=== PATIENT | male | born 1945 | race Caucasian/White ===

== ENCOUNTER → 2019-02-24 08:41 | Outpatient (CLI) | payer MEDICARE, OTHER, SELFPAY ==
[2019-02-24 09:55] LABS: Hemoglobin A1C% w Est Avg Glu 11.4 % (4.0-6.0)
[2019-02-24 10:02] LABS: Alanine Aminotransferase 28 IU/L (21-72); Albumin 3.9 g/dL (3.5-5.0); Albumin Globulin Ratio 1.5 (1.0-2.8); Alkaline Phosphatase 93 U/L (38-126); Aspartate Aminotransferase 23 IU/L (17-59); BUN Creatinine Ratio 18.8 (6-22); Bilirubin Total 0.6 mg/dL (0.2-1.3); Blood Urea Nitrogen 15 mg/dL (9-20); Calcium 9.2 mg/dL (8.4-10.2); Carbon Dioxide 31 mmol/L (22-32); Chloride 98 mmol/L (98-107); Cholesterol 179 mg/dL (140-199); Estimated Glomerular Filt Rate > 60.0 mL/min (>60); Globulin 2.6 g/dL (1.7-4.1); Glucose 248 mg/dL (80-110); HDL Cholesterol 40 mg/dL (40-60); HEMOLYSIS < 15 (0-50); LDL Cholesterol Calculated 109 mg/dL (<100); Potassium 4.5 mmol/L (3.4-5.1); Sodium 135 mmol/L (137-145); Total Protein 6.5 g/dL (6.3-8.2); Triglycerides 152 mg/dL (35-150)
== END ==
PROVIDERS: Visit Provider Internal Medicine
DX: I10 Essential (primary) hypertension (principal); E11.9 Type 2 diabetes mellitus without complications; E78.5 Hyperlipidemia, unspecified
CPT/HCPCS: 36415; 80053; 80061; 83036

== ENCOUNTER → 2019-09-11 07:20 | Outpatient (CLI) | payer MEDICARE, OTHER, SELFPAY ==
[2019-09-11 10:58] LABS: Hemoglobin A1C% w Est Avg Glu 10.2 % (4.0-6.0)
== END ==
PROVIDERS: PCP Internal Medicine; Referring Provider Internal Medicine; Visit Provider Internal Medicine
DX: E11.9 Type 2 diabetes mellitus without complications (principal)
CPT/HCPCS: 36415; 83036

== ENCOUNTER → 2020-01-28 10:03 | Outpatient (CLI) | payer MEDICARE, OTHER, SELFPAY ==
[2020-01-28 10:47] LABS: Hemoglobin A1C% w Est Avg Glu 10.6 % (4.0-6.0)
[2020-01-28 10:48] LABS: Add Manual Diff / Slide Review NO; Basophils Absolute Auto 100 /uL (0-100); Basophils Percent Auto 1.2 % (0-2); Eosinophils Absolute Auto 200 /uL (0-450); Eosinophils Percent Auto 2.5 % (2-4); Hematocrit 46.1 % (41-53); Hemoglobin 15.5 g/dL (13.5-17.5); Lymphocytes Absolute Auto 1400 /uL (1100-4500); Lymphocytes Percent Auto 17.4 % (25-40); Mean Corpuscular HGB Conc 33.7 % (30-36); Mean Corpuscular Volume 89.2 fL (80-100); Monocytes Absolute Auto 600 /uL (0-900); Monocytes Percent Auto 7.5 % (3-14); Neutrophils Absolute Auto 5900 /uL (1500-7000); Neutrophils Percent Auto 71.4 % (50-75); Platelet Count 304 X10^3/uL (150-400); Red Blood Cell Count 5.17 X10^6/uL (4.5-5.9); Red Cell Distribution Width 13.4 % (11.6-14.8); White Blood Cell Count 8.2 X10^3/uL (4.5-11.0)
[2020-01-28 11:06] LABS: HEMOLYSIS < 15 (0-50)
[2020-01-28 11:16] LABS: Creatinine Urine Random 117.6 mg/dL
[2020-01-28 11:19] LABS: Alanine Aminotransferase 22 IU/L (<50); Albumin Globulin Ratio 1.6 (1.0-2.8); Alkaline Phosphatase 109 U/L (38-126); Aspartate Aminotransferase 20 IU/L (17-59); BUN Creatinine Ratio 15.1 (6-22); Bilirubin Total 0.5 mg/dL (0.2-1.3); Blood Urea Nitrogen 13 mg/dL (9-20); Calcium 9.4 mg/dL (8.4-10.2); Carbon Dioxide 31 mmol/L (22-32); Chloride 100 mmol/L (98-107); Estimated Glomerular Filt Rate > 60.0 mL/min (>60); Globulin 2.5 g/dL (1.7-4.1); Glucose 236 mg/dL (80-110); Sodium 138 mmol/L (137-145); Total Protein 6.5 g/dL (6.3-8.2)
[2020-01-28 11:30] LABS: Potassium 5.5 mmol/L (3.4-5.1)
== END ==
PROVIDERS: PCP Family Medicine; Referring Provider Family Medicine; Visit Provider Family Medicine
DX: E11.9 Type 2 diabetes mellitus without complications (principal)
CPT/HCPCS: 36415; 80053; 82043; 82570; 83036; 84153; 85025

== ENCOUNTER → 2020-02-20 09:06 | Outpatient (CLI) | payer MEDICARE, OTHER, SELFPAY ==
[2020-02-20 10:33] LABS: Free T3, Triiodothyronine Free 3.25 pg/mL (2.77-5.27); Free T4, Direct Thyroxine 1.37 ng/dL (0.78-2.19)
[2020-02-20 10:47] LABS: Thyroid Stimulating Hormone 1.47 uIU/mL (0.47-4.68)
[2020-02-20 10:48] LABS: Prostate Specific Antigen Scrn 2.29 ng/mL (0.1-4.0)
== END ==
PROVIDERS: PCP Family Medicine; Referring Provider Family Medicine; Visit Provider Family Medicine
DX: Z12.5 Encounter for screening for malignant neoplasm of prostate (principal); E03.9 Hypothyroidism, unspecified; R39.9 Unspecified symptoms and signs involving the genitourinary system
CPT/HCPCS: 36415; 84439; 84443; 84481; G0103

== ENCOUNTER 2020-03-23 09:51 | Emergency (ER) | payer MEDICARE, OTHER, SELFPAY ==
[2020-03-23] VITALS (13 sets, daily range): BP systolic 159–196; BP diastolic 74–87; PULSE 74–88; RESP 13–28; TEMP 36.6; O2SAT 95–97; BMI 30.5
--- NOTE | 2020-03-23 10:57 | ED_ITS ---
HPI - Arrhythmia/Palpitations General Chief Complaint: Weakness Stated Complaint: Fatigue, heart beating fast, shaking Time Seen by Provider: 03/23/20 10:50 Source: patient and old records reviewed Mode of arrival: Ambulatory Limitations: no limitations History of Present Illness HPI narrative: This is a pleasant 74-year-old male who comes in complaining of just feeling fatigued, tired and unwell. He states that he has particularly felt this way over the last 3 days. He has not had any fevers, no chills, no co ld cough or congestion. He denies any chest pain, no shortness of breath. No lightheadedness or presyncope. No nausea, no vomiting, no diarrhea, constipation or urinary symptoms. He has had no frequency, dysuria or urgency. No urinary incontinence. Any weakness. He does have neuropathy in both feet noticed a little bit worse the last few days. His blood sugar this morning was 164 he is a diabetic on metformin and glipizide, he has a history of hypertension, dyslipidemia and hypothyroid and a benign essential tremor. No prior chronic kidney disease, no prior MIs or CVAs. He has not any blood thinners. His primary care physician did increase his lisinopril and increase his glipizide about 2 or 3 weeks ago. He denies any prior surgeries, no allergies and no tobacco, alcohol or illicit. Related Data Home Medications Medication Instructions Recorded Confirmed Vitamin D-3 50 mcg PO DAILY 02/20/20 03/12/20 cyanocobalamin (vitamin B-12) 1,000 mcg PO DAILY 02/20/20 03/12/20 1,000 mcg capsule metformin 1,000 mg tablet 1,000 mg PO BID 02/20/20 03/12/20 simvastatin 20 mg tablet 20 mg PO DAILY 02/20/20 03/12/20 Zinc PO 03/12/20 Previous Rx's Medication Instructions Recorded amlodipine 2.5 mg tablet 2.5 mg PO DAILY #90 tab 01/28/20 glipizide 10 mg tablet 10 mg PO DAILY #90 tab 02/20/20 levothyroxine 50 mcg tablet 50 mcg PO DAILY #90 tab 02/20/20 lisinopril 5 mg tablet 5 mg PO BID #180 tab 02/20/20 Allergies Allergy/AdvReac Type Severity Reaction Status Date / Time No Known Drug Allergies Allergy Verified 03/23/20 12:05 Review of Systems Review of Systems ROS Unobtainable: All systems reviewed & are unremarkable except as noted in HPI and below Patient History Medical History Arthritis of hand (~2016) Benign essential tremor Diabetes mellitus (~1994) Hyperlipidemia Hypertension Hypothyroidism (acquired) Lower urinary tract symptoms (LUTS) Malaria (~1979) Screening for prostate cancer Skin cancer (~2018) Tinnitus (~2012) Surgical History Anesthesia History of cataract removal with insertion of prosthetic lens (~2016) History of colonoscopy (~2016) Family History Mother Hypertension Hyperlipidemia Brother Diabetes mellitus Sister Gastric reflux Social History Smoking Status: Never smoker Smoking Status: Never smoker Substance Use Type: does not use Exam Narrative Exam Narrative: GEN: well nourished, well appearing male, alert and oriented x 3 , patient appears to be in mild distress. HEENT: Atraumatic, pupils are equal round reactive to light, extraocular movements are intact, nares are clear. HEART: Regular rate and rhythm without murmur, clicks, rubs. No carotid bruits, pulses are equal in upper and lower extremities LUNGS:Lungs clear to auscultation, no wheezes, rales, crackles, chest moves symmetrically ABD:bowel sounds normal, soft, non-tender, no guarding, rebound, rigidity, no masses noted, no hepatosplenomegaly :No CVA tenderness MSCL: Non-tender, no muscle atrophy, muscles strength 5/5 upper and lower extremities, full range of motion NEURO:CN 2-12 intact, sensation normal. normal gait. . Initial Vital Signs Initial Vital Signs: Vital Signs Temperature 97.8 F 03/23/20 10:04 Pulse Rate 87 03/23/20 10:04 Respiratory Rate 28 H 03/23/20 10:04 Blood Pressure 178/81 H 03/23/20 10:04 Pulse Oximetry 96 03/23/20 10:04 Scores GCS Debord coma scale eye opening: Spontaneous Stacie coma scale verbal response: Orientated Stacie coma scale motor response: Obey commands Stacie coma scale total score: 15 Course Orders Ordered: ED Orders 03/23/20 09:59 EKG-12 Lead Routine 03/23/20 11:02 Complete Blood Count AUTO DIFF Stat Comprehensive Metabolic Panel Stat Lipase Stat Magnesium Stat Thyroid Stimulating Hormone Stat Troponin & CK Cardiac Panel Stat 03/23/20 11:09 XR chest 1V Stat 03/23/20 12:44 COVID19 Stat 03/23/20 13:25 Calcium Stat Troponin & CK Cardiac Panel Stat 03/23/20 13:37 EKG-12 Lead Routine 03/23/20 14:15 Calcium Stat Troponin & CK Cardiac Panel Stat 03/23/20 14:23 Phosphorous Stat Discontinued Medications Sodium Chloride (Normal Saline 0.9%) 1,000 mls @ 1,000 mls/hr IV BOLUS ONE Stop: 03/23/20 13:01 Last Infusion: 03/23/20 13:35 Dose: 0 mls/hr Documented by: Admin: 03/23/20 12:05 Dose: 1,000 mls/hr Documented by: CVANCE Calcium Gluconate 9.3 meq/ (Sodium Chloride) 70 mls @ 140 mls/hr IV NOW ONE Stop: 03/23/20 14:17 Last Infusion: 03/23/20 15:00 Dose: 140 mls/hr Documented by: Admin: 03/23/20 14:04 Dose: 140 mls/hr Documented by: CVANCE Reevaluation(s) Reevaluation #3: Updated patient with lab findings, patient did get a dose of calcium in ED but discussed unlikely to cause significant issues. Repeat calcium is 9 after calcium was finished. Troponin is indeterminant with approximately same level Time: 16:05 Consultations Consultation #2: Spoke with Dr. Mireles discussed lab findings including electrolyte abnormalities, troponin and patient's lab changes. plan to stop glipizide. Discussed that did appear to be the most likely cause of his hyponatremia today. He will see the patient in the office this week. Time: 16:39 Vital Signs Vital signs: Vital Signs - 8 hr 03/23/20 10:04 03/23/20 12:56 03/23/20 13:00 Temperature 97.8 F Pulse Rate 87 74 74 Respiratory Rate 28 H 15 15 Blood Pressure 178/81 H Pulse Oximetry 96 03/23/20 13:30 03/23/20 14:00 03/23/20 14:16 Temperature Pulse Rate 81 78 79 Respiratory Rate 17 13 16 Blood Pressure 170/74 H 196/81 H Pulse Oximetry 95 96 97 03/23/20 14:30 03/23/20 14:35 03/23/20 15:00 Temperature Pulse Rate 79 80 79 Respiratory Rate 15 22 18 Blood Pressure 176/74 H 176/74 H Pulse Oximetry 96 97 97 03/23/20 15:56 03/23/20 16:00 Temperature Pulse Rate 78 83 Respiratory Rate 17 Blood Pressure Pulse Oximetry 95 MDM - Arrhythmia/Palpitations Lab Data Attestation: I reviewed the patient's lab results. Lab results narrative: Show low lymphocytes but normal white count. He is hyponatremic with a sodium of 128 this is a decrease from 06/05 8 in January. Chloride is 95 with a normal renal function and glucose is 172 patient's magnesium is appropriate range with troponin is indeterminate. Patient does not have any priors for comparison. TSH is in normal range. Patient had calcium ordered but was re-ordered and low. Noted during discussion and rerun from lab draw and not the line. Was normal, patient troponin is trending slightly upward. Result diagrams: 03/23/20 11:02 03/23/20 11:02 Labs: Lab Results 03/23/20 03/23/20 03/23/20 Range/Units 11:02 11:02 11:02 WBC 9.7 (4.5-11.0) X10^3/uL RBC 5.22 (4.5-5.9) X10^6/uL Hgb 15.4 (13.5-17.5) g/dL Hct 46.1 (41-53) % MCV 88.3 (80-100) fL MCH 29.5 (26-34) PG MCHC 33.4 (30-36) % RDW 13.4 (11.6-14.8) % Plt Count 258 (150-400) X10^3/uL Neut % (Auto) 73.6 (50-75) % Lymph % (Auto) 14.5 L (25-40) % [place] % (Auto) 10.5 (3-14) % Eos % (Auto) 0.7 L (2-4) % Baso % (Auto) 0.7 (0-2) % Neut # (Auto) 7100 H (2596-4409) /uL Lymph # (Auto) 1400 (2251-4747) /uL [place] # (Auto) 1000 H (0-900) /uL Eos # (Auto) 100 (0-450) /uL Baso # (Auto) 100 (0-100) /uL Sodium 128 L (137-145) mmol/L Potassium 4.6 (3.4-5.1) mmol/L Chloride 95 L (98-107) mmol/L Carbon Dioxide 25 (22-32) mmol/L BUN 16 (9-20) mg/dL Creatinine 0.90 (0.66-1.25) mg/dL Estimated GFR > 60.0 (>60) mL/min BUN/Creatinine Ratio 17.8 (6-22) Glucose 172 H (80-110) mg/dL Calcium 8.8 (8.4-10.2) mg/dL Phosphorus (2.3-3.7) mg/dL Magnesium 1.7 (1.6-2.3) mg/dL Total Bilirubin 0.8 (0.2-1.3) mg/dL AST 20 (17-59) IU/L ALT 14 (<50) IU/L Alkaline Phosphatase 96 (38-126) U/L Total Creatine Kinase 26 L (55-170) U/L CK-MB (CK-2) TNP CK-MB (CK-2) Rel Index TNP Troponin I 0.035 H (0.01-0.034) ng/mL Total Protein 6.9 (6.3-8.2) g/dL Albumin 4.1 (3.5-5.0) g/dL Globulin 2.8 (1.7-4.1) g/dL Albumin/Globulin Ratio 1.5 (1.0-2.8) Lipase 71 (23-300) U/L TSH 1.29 (0.47-4.68) uIU/mL COVID-19 PCR (Negative) 03/23/20 03/23/20 03/23/20 Range/Units 12:44 13:25 13:25 WBC (4.5-11.0) X10^3/uL RBC (4.5-5.9) X10^6/uL Hgb (13.5-17.5) g/dL Hct (41-53) % MCV (80-100) fL MCH (26-34) PG MCHC (30-36) % RDW (11.6-14.8) % Plt Count (150-400) X10^3/uL Neut % (Auto) (50-75) % Lymph % (Auto) (25-40) % [place] % (Auto) (3-14) % Eos % (Auto) (2-4) % Baso % (Auto) (0-2) % Neut # (Auto) (8342-2587) /uL Lymph # (Auto) (3680-5336) /uL [place] # (Auto) (0-900) /uL Eos # (Auto) (0-450) /uL Baso # (Auto) (0-100) /uL Sodium (137-145) mmol/L Potassium (3.4-5.1) mmol/L Chloride (98-107) mmol/L Carbon Dioxide (22-32) mmol/L BUN (9-20) mg/dL Creatinine (0.66-1.25) mg/dL Estimated GFR (>60) mL/min BUN/Creatinine Ratio (6-22) Glucose (80-110) mg/dL Calcium 5.6 L* (8.4-10.2) mg/dL Phosphorus (2.3-3.7) mg/dL Magnesium (1.6-2.3) mg/dL Total Bilirubin (0.2-1.3) mg/dL AST (17-59) IU/L ALT (<50) IU/L Alkaline Phosphatase (38-126) U/L Total Creatine Kinase < 20 L (55-170) U/L CK-MB (CK-2) TNP CK-MB (CK-2) Rel Index TNP Troponin I 0.024 (0.01-0.034) ng/mL Total Protein (6.3-8.2) g/dL Albumin (3.5-5.0) g/dL Globulin (1.7-4.1) g/dL Albumin/Globulin Ratio (1.0-2.8) Lipase (23-300) U/L TSH (0.47-4.68) uIU/mL COVID-19 PCR Negative (Negative) 03/23/20 03/23/20 Range/Units 14:15 14:23 WBC (4.5-11.0) X10^3/uL RBC (4.5-5.9) X10^6/uL Hgb (13.5-17.5) g/dL Hct (41-53) % MCV (80-100) fL MCH (26-34) PG MCHC (30-36) % RDW (11.6-14.8) % Plt Count (150-400) X10^3/uL Neut % (Auto) (50-75) % Lymph % (Auto) (25-40) % [place] % (Auto) (3-14) % Eos % (Auto) (2-4) % Baso % (Auto) (0-2) % Neut # (Auto) (3370-9150) /uL Lymph # (Auto) (7186-4683) /uL [place] # (Auto) (0-900) /uL Eos # (Auto) (0-450) /uL Baso # (Auto) (0-100) /uL Sodium (137-145) mmol/L Potassium (3.4-5.1) mmol/L Chloride (98-107) mmol/L Carbon Dioxide (22-32) mmol/L BUN (9-20) mg/dL Creatinine (0.66-1.25) mg/dL Estimated GFR (>60) mL/min BUN/Creatinine Ratio (6-22) Glucose (80-110) mg/dL Calcium 9.0 (8.4-10.2) mg/dL Phosphorus 2.3 (2.3-3.7) mg/dL Magnesium (1.6-2.3) mg/dL Total Bilirubin (0.2-1.3) mg/dL AST (17-59) IU/L ALT (<50) IU/L Alkaline Phosphatase (38-126) U/L Total Creatine Kinase 27 L (55-170) U/L CK-MB (CK-2) TNP CK-MB (CK-2) Rel Index TNP Troponin I 0.039 H (0.01-0.034) ng/mL Total Protein (6.3-8.2) g/dL Albumin (3.5-5.0) g/dL Globulin (1.7-4.1) g/dL Albumin/Globulin Ratio (1.0-2.8) Lipase (23-300) U/L TSH (0.47-4.68) uIU/mL COVID-19 PCR (Negative) Urine Dip Bedside Urine Glucose Negative Bedside Urine Bilirubin - Negative Bedside Urine Ketone +++ 80 Urine Specific [place] 1.025 Bedside Urine Occult Blood - Negative Bedside Urine pH 6.0 Bedside Urine Protein ++ 100 Bedside Urine Urobilinogen - Negative Bedside Urine Nitrite - Negative Bedside Urine Leukocytes - Negative Esterase Imaging Data Chest x-ray: Radiologist's Impresson: [address] [id number] ReportSigned Patient: Case Sargent LMR#: [id number]: [id number]:[id number]/Sex: 74 / MDate of Service: 03/23/20Loc: EDAccession Number: [id number] Procedure: XR chest 1V Ordering Provider: Amelie Qureshi D.O. PROCEDURE: XR CHEST 1V INDICATIONS: fatigue, feels unwell TECHNIQUE: One view of the chest was acquired. COMPARISON: None. FINDINGS: Surgical changes and devices: None. Lungs and pleura: Lungs are clear. No pleural effusions or pneumothorax. Mediastinum: Mediastinal contours appear normal. Heart size is normal. Bones and chest wall: No suspicious bony lesions. Overlying soft tissues appear unremarkable. IMPRESSION: No acute pulmonary process. Dictated by: Anastasiya Wylie M.D. on 03/23/2020 at 11:40 Approved by: Anastasiya Wylie M.D. on 03/23/2020 at 11:40 ECG Data Attestation: I personally reviewed and interpreted this ECG as follows: Prior ECG tracings: not available for review Interpretation: Patient does appear to be in sinus rhythm although his P-wave is inverted in 2 3 and AVF as well as biphasic in lateral leads. Patient has no ST elevation appreciated. He does not appear to have any depression. Nonspecific change. Patient does not have a prior EKG available for comparison. EKG 2, ventricular rate of 79, P are 142, QRS of 74 and QTC of 396. Patient has inverted or biphasic P-waves. MDM Narrative Medical decision making narrative: Patient comes in with complaint of fatigue and not feeling well. Patient is hypo no tree make he had a change of about 2 months his last 1 was 138 today he is 128. 172. Patient's troponin is 0.035, he does not have any priors for comparison. Chest x-ray shows no acute process. Patient had a repeat calcium ordered which was likely diluted as it was drawn off the line at the same time as his repeat troponin. Patient did receive calcium after calcium it was noted that this was likely diluted and calcium was repeated again along with troponin which showed a normal calcium level and troponin was 0.039 slightly elevated from 0.034. This was discussed with the hospitalist who refuses observation. Patient is able to ambulate without issue. We did review reasons to return and patient feels comfortable with this plan. He has not had any other cardiac symptoms at this time and this was also shared with his primary care physician who will follow with him this week, Dr. Mireles with plan to stop his glipizide until he is seen in the office. Patient was updated on this. Discharge Plan Departure Patient Disposition: Home Clinical Impression: Hyponatremia, Weakness Instructions: DI for Hyponatremia Activity Restrictions/Additional Instructions: Follow up with your physician in the next 24-48 hours for recheck. Your sodium level is low today likely causing your symptoms. Discuss with your physician, your glipizide may be causing your low sodium level. I would not stop your medication without discussing with your physician. Return to the ER for worsening symptoms, lightheadedness, passing out, new chest pain, shortness of breath, swelling in your extremities, difficulty with speech, movement, numbness or tingling or other new or concerning symptoms. Prescriptions: No Action amlodipine 2.5 mg tablet 2.5 mg PO DAILY Qty: 90 RF: 1 glipizide 10 mg tablet 10 mg PO DAILY Qty: 90 RF: 3 cyanocobalamin (vitamin B-12) 1,000 mcg capsule 1,000 mcg PO DAILY RF: 0 metformin 1,000 mg tablet 1,000 mg PO BID RF: 0 Vitamin D-3 50 mcg tablet 50 mcg PO DAILY RF: 0 simvastatin 20 mg tablet 20 mg PO DAILY RF: 0 levothyroxine 50 mcg tablet 50 mcg PO DAILY Qty: 90 RF: 0 lisinopril 5 mg tablet 5 mg PO BID Qty: 180 RF: 3 Zinc PO RF: 0 Referrals: Jim Mireles DO [Primary Care Provider] -
--- NOTE | 2020-03-23 11:09 | DI.RAD.S_ITS ---
PROCEDURE: XR CHEST 1V INDICATIONS: fatigue, feels unwell TECHNIQUE: One view of the chest was acquired. COMPARISON: None. FINDINGS: Surgical changes and devices: None. Lungs and pleura: Lungs are clear. No pleural effusions or pneumothorax. Mediastinum: Mediastinal contours appear normal. Heart size is normal. Bones and chest wall: No suspicious bony lesions. Overlying soft tissues appear unremarkable. IMPRESSION: No acute pulmonary process. Dictated by: Anastasiya Wylie M.D. on 03/23/2020 at 11:40 Approved by: Anastasiya Wylie M.D. on 03/23/2020 at 11:40
[2020-03-23 11:17] LABS: Add Manual Diff / Slide Review NO; Basophils Absolute Auto 100 /uL (0-100); Basophils Percent Auto 0.7 % (0-2); Eosinophils Absolute Auto 100 /uL (0-450); Eosinophils Percent Auto 0.7 % (2-4); Hematocrit 46.1 % (41-53); Hemoglobin 15.4 g/dL (13.5-17.5); Lymphocytes Absolute Auto 1400 /uL (1100-4500); Lymphocytes Percent Auto 14.5 % (25-40); Mean Corpuscular HGB Conc 33.4 % (30-36); Mean Corpuscular Hemoglobin 29.5 PG (26-34); Mean Corpuscular Volume 88.3 fL (80-100); Monocytes Absolute Auto 1000 /uL (0-900); Monocytes Percent Auto 10.5 % (3-14); Neutrophils Absolute Auto 7100 /uL (1500-7000); Neutrophils Percent Auto 73.6 % (50-75); Platelet Count 258 X10^3/uL (150-400); Red Blood Cell Count 5.22 X10^6/uL (4.5-5.9); Red Cell Distribution Width 13.4 % (11.6-14.8); White Blood Cell Count 9.7 X10^3/uL (4.5-11.0)
[2020-03-23 11:24] LABS: Alanine Aminotransferase 14 IU/L (<50); Albumin 4.1 g/dL (3.5-5.0); Albumin Globulin Ratio 1.5 (1.0-2.8); Alkaline Phosphatase 96 U/L (38-126); Aspartate Aminotransferase 20 IU/L (17-59); BUN Creatinine Ratio 17.8 (6-22); Bilirubin Total 0.8 mg/dL (0.2-1.3); Blood Urea Nitrogen 16 mg/dL (9-20); Calcium 8.8 mg/dL (8.4-10.2); Carbon Dioxide 25 mmol/L (22-32); Chloride 95 mmol/L (98-107); Creatine Kinase 26 U/L (55-170); Estimated Glomerular Filt Rate > 60.0 mL/min (>60); Globulin 2.8 g/dL (1.7-4.1); Glucose 172 mg/dL (80-110); HEMOLYSIS < 15 (0-50); Lipase 71 U/L (23-300); Magnesium 1.7 mg/dL (1.6-2.3); Potassium 4.6 mmol/L (3.4-5.1); Sodium 128 mmol/L (137-145); Total Protein 6.9 g/dL (6.3-8.2)
[2020-03-23 11:35] LABS: Troponin I 0.035 ng/mL (0.01-0.034)
[2020-03-23 11:55] LABS: Thyroid Stimulating Hormone 1.29 uIU/mL (0.47-4.68)
[2020-03-23] MEDS: SODIUM CHLORIDE 0.9% 1,000 ML 1000 ML IV (12:05)
[2020-03-23 12:49] LABS: COVID19 -Nasal RAPID Negative (Negative)
[2020-03-23 13:46] LABS: Creatine Kinase < 20 U/L (55-170)
[2020-03-23 13:48] LABS: Calcium 5.6 mg/dL (8.4-10.2)
[2020-03-23 13:58] LABS: Troponin I 0.024 ng/mL (0.01-0.034)
[2020-03-23] MEDS: CALCIUM GLUCONATE 9.3 MEQ in SODIUM CHLORIDE 0.9% 50 ML 140 ML IV (14:04)
[2020-03-23 14:32] LABS: Phosphorous 2.3 mg/dL (2.3-3.7)
[2020-03-23 15:34] LABS: Creatine Kinase 27 U/L (55-170)
[2020-03-23 15:45] LABS: Troponin I 0.039 ng/mL (0.01-0.034)
== END 2020-03-23 16:45 | disposition home or self-care (01) ==
PROVIDERS: Emergency Provider Emergency Medicine; PCP Family Medicine
DX: E87.1 Hypo-osmolality and hyponatremia (principal); R53.1 Weakness; R79.89 Other specified abnormal findings of blood chemistry
CPT/HCPCS: 36415; 71045; 80053; 81003; 82310; 82550; 83690; 83735; 84100; 84443; 84484; 85025; 87635; 93005; 96365; 96366; 96367; 99283; 99284; J0610

== ENCOUNTER → 2020-06-08 08:14 | Outpatient (CLI) | payer MEDICARE, SELFPAY ==
[2020-06-08 09:43] LABS: Hemoglobin A1C% w Est Avg Glu 7.6 % (4.0-6.0)
[2020-06-08 09:58] LABS: BUN Creatinine Ratio 15.7 (6-22); Blood Urea Nitrogen 14 mg/dL (9-20); Calcium 9.4 mg/dL (8.4-10.2); Carbon Dioxide 32 mmol/L (22-32); Chloride 103 mmol/L (98-107); Cholesterol 162 mg/dL (140-199); Estimated Glomerular Filt Rate > 60.0 mL/min (>60); Glucose 95 mg/dL (80-110); HDL Cholesterol 44 mg/dL (40-60); HEMOLYSIS < 15 (0-50); LDL Cholesterol Calculated 86 mg/dL (<100); Potassium 4.4 mmol/L (3.4-5.1); Sodium 137 mmol/L (137-145); Triglycerides 160 mg/dL (35-150)
[2020-06-08 10:00] LABS: Creatinine Urine Random 72.8 mg/dL; Sodium Urine Random 134 mmol/L (30-90)
[2020-06-08 10:16] LABS: Microalbumi Creatinin Ratio Ur 351.6 ug/mg CR (<30); Microalbumin Urine Random 25.6 mg/dL (0-1.6)
== END ==
PROVIDERS: PCP Student in an Organized Health Care Education/Training Program; Referring Provider Student in an Organized Health Care Education/Training Program; Visit Provider Student in an Organized Health Care Education/Training Program
DX: E11.42 Type 2 diabetes mellitus with diabetic polyneuropathy (principal); E11.69 Type 2 diabetes mellitus with other specified complication; E78.5 Hyperlipidemia, unspecified; E87.1 Hypo-osmolality and hyponatremia
CPT/HCPCS: 36415; 80048; 80061; 82043; 82570; 83036; 84300

== ENCOUNTER → 2020-07-16 08:24 | Outpatient (CLI) | payer MEDICARE, SELFPAY ==
[2020-07-16] MEDS: COVID-19 VACC, Ad26(JANSSEN)/PF 0.5 ML IM (08:39)
== END ==
PROVIDERS: PCP Student in an Organized Health Care Education/Training Program; Visit Provider Internal Medicine
DX: Z23 Encounter for immunization (principal)
CPT/HCPCS: 0031A; 91303

== ENCOUNTER → 2020-08-21 09:21 | Outpatient (CLI) | payer MEDICARE, SELFPAY ==
[2020-08-23 10:38] LABS: Fecal Immunochemical Test Negative (Negative)
== END ==
PROVIDERS: PCP Student in an Organized Health Care Education/Training Program; Referring Provider Student in an Organized Health Care Education/Training Program; Visit Provider Student in an Organized Health Care Education/Training Program
DX: Z91.89 Other specified personal risk factors, not elsewhere classified (principal)
CPT/HCPCS: 82274

== ENCOUNTER → 2020-09-10 06:26 | Outpatient (CLI) | payer MEDICARE, SELFPAY ==
[2020-09-10 08:30] LABS: BUN Creatinine Ratio 13.5 (6-22); Blood Urea Nitrogen 13 mg/dL (9-20); Estimated Glomerular Filt Rate > 60.0 mL/min (>60)
[2020-09-10 08:35] LABS: Hemoglobin A1C% w Est Avg Glu 7.6 % (4.0-6.0)
== END ==
PROVIDERS: PCP Student in an Organized Health Care Education/Training Program; Referring Provider Student in an Organized Health Care Education/Training Program; Visit Provider Student in an Organized Health Care Education/Training Program
DX: E11.29 Type 2 diabetes mellitus with other diabetic kidney complication (principal); E11.42 Type 2 diabetes mellitus with diabetic polyneuropathy; R80.9 Proteinuria, unspecified
CPT/HCPCS: 36415; 82565; 83036; 84520

== ENCOUNTER → 2020-12-02 09:47 | Outpatient (CLI) | payer MEDICARE, SELFPAY ==
[2020-12-02 11:31] LABS: BUN Creatinine Ratio 18.2 (6-22); Blood Urea Nitrogen 16 mg/dL (9-20); Estimated Glomerular Filt Rate > 60.0 mL/min (>60)
[2020-12-02 11:42] LABS: Hemoglobin A1C% w Est Avg Glu 8.6 % (4.0-6.0)
== END ==
PROVIDERS: PCP Student in an Organized Health Care Education/Training Program; Referring Provider Student in an Organized Health Care Education/Training Program; Visit Provider Student in an Organized Health Care Education/Training Program
DX: E11.29 Type 2 diabetes mellitus with other diabetic kidney complication (principal); E11.42 Type 2 diabetes mellitus with diabetic polyneuropathy
CPT/HCPCS: 36415; 82565; 83036; 84520

== ENCOUNTER → 2021-03-15 08:23 | Outpatient (CLI) | payer MEDICARE, SELFPAY ==
[2021-03-15 10:35] LABS: BUN Creatinine Ratio 19.6 (6-22); Blood Urea Nitrogen 18 mg/dL (9-20); Calcium 9.4 mg/dL (8.4-10.2); Carbon Dioxide 26 mmol/L (22-32); Chloride 104 mmol/L (98-107); Estimated Glomerular Filt Rate > 60.0 mL/min (>60); Glucose 195 mg/dL (80-110); HEMOLYSIS < 15 (0-50); Potassium 5.3 mmol/L (3.4-5.1); Sodium 137 mmol/L (137-145)
[2021-03-15 14:12] LABS: Hemoglobin A1C% w Est Avg Glu 8.4 % (4.0-6.0)
== END ==
PROVIDERS: PCP Student in an Organized Health Care Education/Training Program; Referring Provider Student in an Organized Health Care Education/Training Program; Visit Provider Student in an Organized Health Care Education/Training Program
DX: E11.29 Type 2 diabetes mellitus with other diabetic kidney complication (principal); E11.42 Type 2 diabetes mellitus with diabetic polyneuropathy; I10 Essential (primary) hypertension; R80.9 Proteinuria, unspecified
CPT/HCPCS: 36415; 80048; 83036

== ENCOUNTER 2021-04-25 18:05 | Emergency (ER) | payer MEDICARE, SELFPAY ==
[2021-04-25] VITALS (14 sets, daily range): BP systolic 176–222; BP diastolic 79–107; PULSE 49–64; RESP 13–19; TEMP 37.3; O2SAT 97–99; BMI 28.0
--- NOTE | 2021-04-25 18:42 | DI.RAD.S_ITS ---
PROCEDURE: XR CHEST 1V INDICATIONS: chest pain TECHNIQUE: One view of the chest was acquired. COMPARISON: [facility], , XR CHEST 1V, 03/23/2020, 11:08. FINDINGS: Surgical changes and devices: None. Lungs and pleura: Lungs are clear. No pleural effusions or pneumothorax. Mediastinum: Mediastinal contours appear normal. Heart size is normal. Bones and chest wall: No suspicious bony lesions. Overlying soft tissues appear unremarkable. IMPRESSION: No acute cardiopulmonary findings Approved by: Rubén Lee M.D. on 04/25/2021 at 17:58
[2021-04-25 19:10] LABS: Add Manual Diff / Slide Review NO; Basophils Absolute Auto 100 /uL (0-100); Basophils Percent Auto 0.8 % (0-2); Eosinophils Absolute Auto 500 /uL (0-450); Eosinophils Percent Auto 5.3 % (2-4); Hematocrit 42.8 % (41-53); Hemoglobin 14.6 g/dL (13.5-17.5); Lymphocytes Absolute Auto 1900 /uL (1100-4500); Lymphocytes Percent Auto 20.8 % (25-40); Mean Corpuscular HGB Conc 34.1 % (30-36); Mean Corpuscular Hemoglobin 30.1 PG (26-34); Mean Corpuscular Volume 88.1 fL (80-100); Monocytes Absolute Auto 800 /uL (0-900); Monocytes Percent Auto 9.1 % (3-14); Neutrophils Absolute Auto 5700 /uL (1500-7000); Platelet Count 309 X10^3/uL (150-400); Red Blood Cell Count 4.86 X10^6/uL (4.5-5.9); Red Cell Distribution Width 13.5 % (11.6-14.8); White Blood Cell Count 8.9 X10^3/uL (4.5-11.0)
--- NOTE | 2021-04-25 19:26 | ED.GENADULT ---
HPI - General Adult General Chief complaint: Hypertension Stated complaint: Heart coming from walk in Time Seen by Provider: 04/25/21 19:18 Source: patient Mode of arrival: Ambulatory History of Present Illness HPI narrative: Patient is a 75-year-old male with history of hypertension, diabetes, essential tremor presenting with left wrist pain. He actually went to the walk-in clinic today because he has been having ongoing left wrist pain for a number of weeks. He has numbness and tingling in his index and middle finger with occasional shooting pain to his elbow. He said in the morning and significantly worse. He had an episode of diaphoresis 2 days ago with a little bit of diarrhea. He said the diarrhea has since stopped completely He has no nausea or vomiting. He has no abdominal pain. He has no chest pain or palpitations. No shortness of breath. He was seen at the walk-in clinic for his left wrist however he was sent to the emergency department because his blood pressure was noted to be significantly elevated. He has no numbness tingling weakness in any extremity however he is having pain in the wrist. No prior history of coronary artery disease Patient worked in [employer] for 30 years loss of computer work. No prior history of carpal tunnel. Related Data Home Medications Medication Instructions Recorded Confirmed Vitamin D-3 50 mcg PO DAILY 02/20/20 03/17/21 cyanocobalamin (vitamin B-12) 1,000 mcg PO DAILY 02/20/20 03/17/21 1,000 mcg capsule Previous Rx's Medication Instructions Recorded one touch glucose meter #1 ea 06/11/20 one touch test strip #300 ea 06/11/20 lancets 30 gauge (OneTouch Delica #300 ea 06/15/20 Lancets) lisinopril 20 mg tablet 20 mg PO DAILY #90 tab 09/06/20 simvastatin 20 mg tablet 20 mg PO DAILY #90 tab 10/05/20 levothyroxine 50 mcg tablet 50 mcg PO DAILY #90 tab 03/14/21 glipizide 5 mg tablet, extended 5 mg PO BID #180 tab 03/17/21 release 24 hr metformin 850 mg tablet 850 mg PO .TIDCC #270 tab 03/17/21 Allergies Allergy/AdvReac Type Severity Reaction Status Date / Time No Known Drug Allergies Allergy Verified 04/25/21 19:52 Review of Systems Review of Systems Narrative: GENERAL: Denies chills, fatigue, malaise, fever, sweats, travel HEENT: Denies sinus pain, ear pain, sore throat, difficulty swallowing, neck pain RESPIRATORY: Denies dyspnea, cough, wheezing, hemoptysis, sputum. CARDIOVASCULAR: Denies chest pain, palpitations, orthopnea, edema GASTROINTESTINAL: Denies nausea, vomiting, abdominal pain, diarrhea, constipation, melena. : Denies dysuria, frequency, incontinence, hematuria, urinary retention, flank pain. MUSCULOSKELETAL: See HPI SKIN: No rash, no erythema, no pruritus NEUROLOGIC: Denies weakness, dizziness, headache, numbness, change in speech, confusion PSYCHIATRIC: No concerning psychosocial issues. 12 point review of systems is negative except for those stated above and HPI Patient History Medical History (Updated 04/25/21 @ 23:43 by Dominique Aguillon DO) Arthritis of hand (~2016) Benign essential tremor Diabetes mellitus (~1994) Hypothyroidism (acquired) Left ankle sprain Malaria (~1979) Skin cancer (~2018) Tinnitus (~2012) Surgical History Anesthesia History of cataract removal with insertion of prosthetic lens (~2016) History of colonoscopy (~2016) Family History Mother Hypertension Hyperlipidemia Brother Diabetes mellitus Sister Gastric reflux Social History Smoking Status: Never smoker Smoking Status: Never smoker Substance Use Type: does not use Exam Initial Vital Signs Initial Vital Signs: Vital Signs Temperature 99.1 F 04/25/21 18:30 Pulse Rate 60 04/25/21 18:30 Respiratory Rate 14 04/25/21 18:30 Blood Pressure 215/90 H 04/25/21 18:30 Pulse Oximetry 99 04/25/21 18:30 GENERAL: Alert pleasant 75-year-old male and in no acute distress. HEENT: Head atraumatic,EOMI, pupils reactive, face symmetric, moist mucous membranes CARDIOVASCULAR: Regular rate and rhythm without murmurs, rubs or gallops. RESPIRATORY: Breath sounds equal bilaterally, no wheezes rales or rhonchi. ABDOMEN: Soft, nontender. Normoactive bowel sounds all 4 quadrants. No guarding or rebound. : No CVA tenderness EXTREMITIES: Normal range of motion, no clubbing or edema. Neurovascularly intact Left wrist pain is reproducible with flexion of wrist strong distal radial pulse minimal swelling sensation intact in all extremities NEUROLOGICAL: Alert and oriented x4.Normal gait and speech. Cranial nerves II through XII grossly intact. Resting tremor noted bilaterally SKIN: Warm, dry, no laceration, no petechiae, no rashes or lesions. Course Orders Ordered: ED Orders 04/25/21 18:42 XR chest 1V Stat EKG-12 Lead Stat 04/25/21 18:58 COVID19 - ADMIT (MILL TENDER WARM UP swab/PCR) Stat Complete Blood Count AUTO DIFF Stat 04/25/21 19:35 EKG-12 Lead Stat 04/25/21 20:15 Comprehensive Metabolic Panel Stat Lipase Stat Magnesium Stat NT-proBNP (BNP-Adult 18+) Stat Partial Thromboplastin Time Stat Prothrombin Time INR Stat Troponin & CK Cardiac Panel Stat 04/25/21 20:29 EKG-12 Lead Stat 04/25/21 22:20 Trop I [Troponin I] Stat 04/25/21 22:34 EKG-12 Lead Stat Discontinued Medications Nitroglycerin (Nitroglycerin 0.4 Mg Sl Tab) 0.4 mg SL NOW ONE Stop: 04/25/21 19:48 Last Admin: 04/25/21 19:54 Dose: 0.4 mg Documented by: JAMIL Vital Signs Vital signs: Vital Signs - 8 hr 04/25/21 19:31 04/25/21 19:45 04/25/21 19:54 Pulse Rate 63 54 L Respiratory Rate 19 14 Blood Pressure 222/93 H 222/93 H Pulse Oximetry 98 04/25/21 20:00 04/25/21 20:18 04/25/21 20:30 Pulse Rate 64 53 L 52 L Respiratory Rate 13 15 16 Blood Pressure 176/80 H 204/84 H 178/83 H Pulse Oximetry 98 98 97 04/25/21 21:00 04/25/21 21:41 04/25/21 21:43 Pulse Rate 52 L 52 L 49 L Respiratory Rate 19 14 Blood Pressure 196/106 H 193/82 H Pulse Oximetry 04/25/21 22:00 04/25/21 22:30 04/25/21 23:00 Pulse Rate 49 L 52 L 50 L Respiratory Rate 14 19 15 Blood Pressure 184/107 H 189/79 H 180/87 H Pulse Oximetry 97 04/25/21 23:30 Pulse Rate 53 L Respiratory Rate 15 Blood Pressure 184/88 H Pulse Oximetry 98 Medical Decision Making Lab Data Result diagrams: 04/25/21 18:58 04/25/21 20:15 Labs: Lab Results 04/25/21 04/25/21 04/25/21 Range/Units 18:58 18:58 20:15 WBC 8.9 (4.5-11.0) X10^3/uL RBC 4.86 (4.5-5.9) X10^6/uL Hgb 14.6 (13.5-17.5) g/dL Hct 42.8 (41-53) % MCV 88.1 (80-100) fL MCH 30.1 (26-34) PG MCHC 34.1 (30-36) % RDW 13.5 (11.6-14.8) % Plt Count 309 (150-400) X10^3/uL Neut % (Auto) 64.0 (50-75) % Lymph % (Auto) 20.8 L (25-40) % Chilton % (Auto) 9.1 (3-14) % Eos % (Auto) 5.3 H (2-4) % Baso % (Auto) 0.8 (0-2) % Neut # (Auto) 5700 (8309-2650) /uL Lymph # (Auto) 1900 (5847-4647) /uL Chilton # (Auto) 800 (0-900) /uL Eos # (Auto) 500 H (0-450) /uL Baso # (Auto) 100 (0-100) /uL PT 10.3 (10.1-12.7) SECONDS INR 0.9 (0.9-1.3) APTT 34 (26.4-36.2) SECONDS Sodium (137-145) mmol/L Potassium (3.4-5.1) mmol/L Chloride (98-107) mmol/L Carbon Dioxide (22-32) mmol/L BUN (9-20) mg/dL Creatinine (0.66-1.25) mg/dL Estimated GFR (>60) mL/min BUN/Creatinine Ratio (6-22) Glucose (80-110) mg/dL Calcium (8.4-10.2) mg/dL Magnesium (1.6-2.3) mg/dL Total Bilirubin (0.2-1.3) mg/dL AST (17-59) IU/L ALT (<50) IU/L Alkaline Phosphatase (38-126) U/L Total Creatine Kinase (55-170) U/L CK-MB (CK-2) CK-MB (CK-2) Rel Index Troponin I (0.01-0.034) ng/mL NT-Pro-B Natriuret Pep (<125) pg/mL Total Protein (6.3-8.2) g/dL Albumin (3.5-5.0) g/dL Globulin (1.7-4.1) g/dL Albumin/Globulin Ratio (1.0-2.8) Lipase (23-300) U/L SARS-CoV-2 (PCR) Negative (Negative) 04/25/21 04/25/21 Range/Units 20:15 22:20 WBC (4.5-11.0) X10^3/uL RBC (4.5-5.9) X10^6/uL Hgb (13.5-17.5) g/dL Hct (41-53) % MCV (80-100) fL MCH (26-34) PG MCHC (30-36) % RDW (11.6-14.8) % Plt Count (150-400) X10^3/uL Neut % (Auto) (50-75) % Lymph % (Auto) (25-40) % Chilton % (Auto) (3-14) % Eos % (Auto) (2-4) % Baso % (Auto) (0-2) % Neut # (Auto) (4764-4664) /uL Lymph # (Auto) (6444-2156) /uL Chilton # (Auto) (0-900) /uL Eos # (Auto) (0-450) /uL Baso # (Auto) (0-100) /uL PT (10.1-12.7) SECONDS INR (0.9-1.3) APTT (26.4-36.2) SECONDS Sodium 136 L (137-145) mmol/L Potassium 5.3 H (3.4-5.1) mmol/L Chloride 103 (98-107) mmol/L Carbon Dioxide 29 (22-32) mmol/L BUN 18 (9-20) mg/dL Creatinine 1.11 (0.66-1.25) mg/dL Estimated GFR > 60.0 (>60) mL/min BUN/Creatinine Ratio 16.2 (6-22) Glucose 188 H (80-110) mg/dL Calcium 9.3 (8.4-10.2) mg/dL Magnesium 2.0 (1.6-2.3) mg/dL Total Bilirubin 0.2 (0.2-1.3) mg/dL AST 21 (17-59) IU/L ALT 16 (<50) IU/L Alkaline Phosphatase 79 (38-126) U/L Total Creatine Kinase 63 (55-170) U/L CK-MB (CK-2) TNP CK-MB (CK-2) Rel Index TNP Troponin I 0.017 0.017 (0.01-0.034) ng/mL NT-Pro-B Natriuret Pep 206 H (<125) pg/mL Total Protein 6.4 (6.3-8.2) g/dL Albumin 3.9 (3.5-5.0) g/dL Globulin 2.5 (1.7-4.1) g/dL Albumin/Globulin Ratio 1.6 (1.0-2.8) Lipase 258 (23-300) U/L SARS-CoV-2 (PCR) (Negative) Imaging Data Chest x-ray: Radiologist's Impression: PROCEDURE:? XR CHEST 1V ? INDICATIONS:? chest pain ? TECHNIQUE:? One view of the chest was acquired.? ? COMPARISON:? [facility], , XR CHEST 1V, 03/23/2020, 11:08. ? FINDINGS:? ? Surgical changes and devices:? None.? ? Lungs and pleura:? Lungs are clear.? No pleural effusions or pneumothorax.? ? Mediastinum:? Mediastinal contours appear normal.? Heart size is normal.? ? Bones and chest wall:? No suspicious bony lesions.? Overlying soft tissues appear unremarkable.? ? IMPRESSION:? No acute cardiopulmonary findings ? ? ? Approved by: Rubén Lee M.D. on 04/25/2021 at 17:58? ECG Data Interpretation: EKG 1. Sinus rhythm rate 58 AR interval 168 QRS 96 QTC 373 possible peaked T-waves in V2 and V3 with T-wave inversion in AVR is no ST depression certainly more pronounced than previous EKG EKG 2. Sinus rhythm persistent changes with out ST elevation or depressions persistent T-wave inversion in AVR EKG 3. Sinus rhythm no changes His EKG does before sinus rhythm rate 54 no changes from prior MDM Narrative Medical decision making narrative: The patient's initial complaint is of left wrist pain symptoms are hart reproducible with wrist flexion symptoms are most consistent with a carpal tunnel like syndrome. However she has a significantly elevated blood pressure with slightly abnormal EKG. Cardiac workup is is negative he has no changes in his EKG he has 2- troponins in denies adamantly about any chest pain back pain shortness of breath or any cardiac or cardiac equivalent symptoms. He says he exercise and walk today without any difficulty. He is quite active. His given a left wrist splint for treatment of his carpal tunnel, med I recommend he follow-up with his PCP in monitor his blood pressure at home. Discharge Plan Departure Patient Disposition: Home Clinical Impression: Acute carpal tunnel syndrome, Hypertension Instructions: Carpal Tunnel Syndrome, DI for High Blood Pressure Activity Restrictions/Additional Instructions: *You have been diagnosed with elevated blood pressure and left-sided carpal tunnel syndrome *What to do: At this time your blood pressure noted to be quite elevated in the emergency department. Please check your blood pressure once a day and record. You may need adjustment in your blood pressure medication. Persistently elevated high blood pressure can cause stroke and heart attack. Your wrist discomfort seems to be related to carpal tunnel. Please wear wrist splint at night and while active during the day if needed. If it does not help any do not have to wear it. Please follow up with her primary may need referral to orthopedics. *Continue to take medications as directed *Follow up with your primary care provider in 2-3 days or call [phone] *Return to ER if you should have visual changes, speech difficulty, numbness, tingling, weakness, chest pain, shortness of breath or any new, worsening or concerning symptoms Prescriptions: No Action (DME) lancets [OneTouch Delica Lancets] 30 gauge misc See Rx Instructions .ROUTE .MEDSUPPLY Qty: 300 6RF Rx Instructions: Use to check blood sugars 4x a day lisinopril 20 mg tablet 20 mg PO DAILY Qty: 90 3RF simvastatin 20 mg tablet 20 mg PO DAILY Qty: 90 3RF levothyroxine 50 mcg tablet 50 mcg PO DAILY Qty: 90 3RF cyanocobalamin (vitamin B-12) 1,000 mcg capsule 1,000 mcg PO DAILY 0RF Vitamin D-3 50 mcg tablet 50 mcg PO DAILY 0RF metformin 850 mg tablet 850 mg PO .TIDCC Qty: 270 0RF glipizide 5 mg tablet extended release 24hr 5 mg PO BID Qty: 180 1RF (DME) one touch glucose meter See Rx Instructions .Route .MEDSUPPLY Qty: 1 0RF Rx Instructions: use to blood sugar 4 times a day (DME) one touch test strip See Rx Instructions .Route .MEDSUPPLY Qty: 300 3RF Rx Instructions: use to check blood sugar 4 times daily Referrals: Jaciel Bonilla MD [Primary Care Provider] -
[2021-04-25 19:51] LABS: COVID19 - ADMIT (NP swab/PCR) Negative (Negative)
[2021-04-25] MEDS: NITROGLYCERIN 0.4 MG SL TAB SL (19:54)
[2021-04-25 20:33] LABS: INR 0.9 (0.9-1.3); Prothrombin Time 10.3 SECONDS (10.1-12.7)
[2021-04-25 20:36] LABS: PTT Partial Thromboplastin Tim 34 SECONDS (26.4-36.2)
[2021-04-25 20:40] LABS: Alanine Aminotransferase 16 IU/L (<50); Albumin 3.9 g/dL (3.5-5.0); Albumin Globulin Ratio 1.6 (1.0-2.8); Alkaline Phosphatase 79 U/L (38-126); Aspartate Aminotransferase 21 IU/L (17-59); BUN Creatinine Ratio 16.2 (6-22); Bilirubin Total 0.2 mg/dL (0.2-1.3); Blood Urea Nitrogen 18 mg/dL (9-20); Calcium 9.3 mg/dL (8.4-10.2); Carbon Dioxide 29 mmol/L (22-32); Chloride 103 mmol/L (98-107); Creatine Kinase 63 U/L (55-170); Estimated Glomerular Filt Rate > 60.0 mL/min (>60); Globulin 2.5 g/dL (1.7-4.1); Glucose 188 mg/dL (80-110); HEMOLYSIS < 15 (0-50); Lipase 258 U/L (23-300); Potassium 5.3 mmol/L (3.4-5.1); Sodium 136 mmol/L (137-145); Total Protein 6.4 g/dL (6.3-8.2)
[2021-04-25 20:53] LABS: NT-proBNP (BNP-Adult 18+) 206 pg/mL (<125); Troponin I 0.017 ng/mL (0.01-0.034)
[2021-04-25 22:59] LABS: Troponin I 0.017 ng/mL (0.01-0.034)
== END 2021-04-25 23:57 | disposition home or self-care (01) ==
PROVIDERS: Emergency Provider Emergency Medicine; PCP Student in an Organized Health Care Education/Training Program
DX: G56.02 Carpal tunnel syndrome, left upper limb (principal); I10 Essential (primary) hypertension; Z20.822 Contact with and (suspected) exposure to COVID-19
CPT/HCPCS: 36415; 71045; 80053; 82550; 83690; 83735; 83880; 84484; 85025; 85610; 85730; 87635; 93005; 99284; C9803

== ENCOUNTER → 2021-06-06 08:25 | Outpatient (CLI) | payer MEDICARE, SELFPAY ==
[2021-06-06 09:46] LABS: Hemoglobin A1C% w Est Avg Glu 7.6 % (4.0-6.0)
[2021-06-06 10:15] LABS: BUN Creatinine Ratio 18.6 (6-22); Blood Urea Nitrogen 24 mg/dL (9-20); Cholesterol 106 mg/dL (140-199); Estimated Glomerular Filt Rate 54.4 mL/min (>60); HDL Cholesterol 32 mg/dL (40-60); LDL Cholesterol Calculated 49 mg/dL (<100); Triglycerides 126 mg/dL (35-150)
[2021-06-06 10:31] LABS: Creatinine Urine Random 96.3 mg/dL
[2021-06-06 11:04] LABS: Microalbumi Creatinin Ratio Ur 381.1 ug/mg CR (<30); Microalbumin Urine Random 36.7 mg/dL (0-1.6)
== END ==
PROVIDERS: PCP Student in an Organized Health Care Education/Training Program; Referring Provider Student in an Organized Health Care Education/Training Program; Visit Provider Student in an Organized Health Care Education/Training Program
DX: E11.29 Type 2 diabetes mellitus with other diabetic kidney complication (principal); E11.42 Type 2 diabetes mellitus with diabetic polyneuropathy; E11.69 Type 2 diabetes mellitus with other specified complication; E78.5 Hyperlipidemia, unspecified; I10 Essential (primary) hypertension; R80.9 Proteinuria, unspecified
CPT/HCPCS: 36415; 80061; 82043; 82565; 82570; 83036; 84520

== ENCOUNTER → 2021-09-06 07:50 | Outpatient (CLI) | payer MEDICARE, SELFPAY ==
--- NOTE | 2021-09-06 | DI.ECHO.S_ITS ---
[facility]---------+ [facility] +---------+ : : [address] [place] : : : : [id number] : : : : Phone: [phone] Echocardiogram Report + + :Name: ABHI SILVA Study Date: 09/06/2021 Height: 69 in : :[facility] ReadingLocation: Weight: 190 lb : : Gender: Male BSA: 2.0 m2 : :: 1945 Age: 76 yrs BP: 179/74 mmHg: :Reason For Study: MURMUR : :Ordering Physician: TREY, : :JADIEL Performed By: Erica Branch : :Referring: JADIEL RICCI : + + Interpretation Summary 1) Normal left ventricular thickness, size, wall motion, and systolic function (EF 60-65%). 2) Normal right ventricular size and function. 3) No significant valvular abnormalities. 4) Hypertension present during the study (BP 179/74mm Hg). 5) No prior Echo available for comparison. Procedure: A two-dimensional transthoracic echocardiogram with color flow and Doppler was performed. The study quality was technically adequate. There is no prior echocardiogram noted for this patient. The patient was in sinus rhythm with heart rates between 59-75 bpm during the exam. Left Ventricle: The left ventricle is normal in size and wall thickness. The ejection fraction is estimated to be 60-65%. Left ventricular systolic function appears normal without focal wall motion abnormalities. Diastolic function could not be accurately assessed due to contradictory data. Right Ventricle: The right ventricle is normal in size and function. Atria: The left atrial size is normal. Right atrial size is normal. There is no Doppler evidence for an interatrial shunt. Mitral Valve: The mitral valve is normal in structure and function. There is trace mitral regurgitation. Aortic Valve: The aortic valve is trileaflet. The aortic valve opens well. There is no aortic valve stenosis. No aortic regurgitation is present. Tricuspid Valve: The tricuspid valve is normal in structure and function. There is trace tricuspid regurgitation. Pulmonic Valve: The pulmonic valve leaflets are thin and pliable; valve motion is normal. There is no pulmonic valvular regurgitation. Great Vessels: The aortic root is normal size. The dimensions of the ascending aorta are normal. The IVC is of normal diameter and collapses greater than 50% with a sniff. This suggests a low right atrial pressure of 3 mm Hg. Pericardium/ Pleura There is no pericardial effusion. There is no pleural effusion. MMode/2D Measurements & Calculations LVIDd: 4.8 cm LVOT diam: 2.1 cm LVIDs: 2.7 cm Ao root diam: 2.9 cm FS: 43.4 % asc Aorta Diam: 3.0 cm IVSd: 0.89 cm Ao Arch Diam (Prox Trans): 3.0 cm LVPWd: 0.94 cm LV chaudhari. diameter/BSA (cm/m^2): 2.4 LV sys. diameter/BSA (cm/m^2): 1.3 LA A2 area: 18.0 cm2 RA long axis: 5.3 cm LA A4 area: 21.4 cm2 RA area: 17.8 cm2 LA length (vol): 6.1 cm RA vol: 51.3 ml LA vol: 53.6 ml RA : 25.4 ml/m2 LA vol index: 26.5 ml/m2 IVC diam: 1.7 cm RVD1 (basal): 3.8 cm RVD2 (mid): 3.3 cm TAPSE: 2.4 cm Doppler Measurements & Calculations Ao V2 max: 159.4 cm/sec LVOT Max Eugene: 129.9 cm/sec Ao V2 mean: 102.6 cm/sec LV V1 max P.8 mmHg Ao max P.2 mmHg LV V1 VTI: 29.1 cm Ao mean P.8 mmHg CRISTAL(I,D): 3.2 cm2 Ao V2 VTI: 32.2 cm CRISTAL(V,D): 2.9 cm2 sev ratio: 0.90 CRISTAL indexed to BSA (cm^2/m^2): 1.6 MV E max eugene: 140.0 cm/sec PA V2 max: 124.7 cm/sec MV A max uegene: 47.0 cm/sec PA V2 mean: 92.8 cm/sec MV E/A: 3.0 PA mean P.7 mmHg Med Peak E' Eugene: 6.9 cm/sec PA pr(Accel): 31.0 mmHg E/E' med: 20.3 Lat Peak E' Eugene: 6.4 cm/sec E/E' lat: 22.0 E/e' average: 21.1 MV dec time: 0.19 sec SV(LVOT): 102.2 ml Reading Physician:01:54 PM
== END ==
PROVIDERS: PCP Student in an Organized Health Care Education/Training Program; Referring Provider Internal Medicine Cardiovascular Disease; Visit Provider Internal Medicine Cardiovascular Disease
DX: R01.1 Cardiac murmur, unspecified (principal)
CPT/HCPCS: 93306

== ENCOUNTER → 2021-12-20 07:04 | Outpatient (CLI) | payer MEDICARE, SELFPAY ==
[2021-12-20 07:53] LABS: Creatinine Urine Random 57.2 mg/dL
[2021-12-20 07:57] LABS: Microalbumi Creatinin Ratio Ur 171.3 ug/mg CR (<30); Microalbumin Urine Random 9.8 mg/dL (0-1.6)
[2021-12-20 07:57] LABS: Hemoglobin A1C% w Est Avg Glu 7.2 % (4.0-6.0)
[2021-12-20 08:28] LABS: BUN Creatinine Ratio 17.2 (6-22); Blood Urea Nitrogen 21 mg/dL (9-20); Estimated Glomerular Filt Rate > 60 mL/min (>60)
[2021-12-20 08:55] LABS: TSH w/ Reflex to FT4 2.21 uIU/mL (0.47-4.68)
== END ==
PROVIDERS: PCP Student in an Organized Health Care Education/Training Program; Referring Provider Student in an Organized Health Care Education/Training Program; Visit Provider Student in an Organized Health Care Education/Training Program
DX: E11.29 Type 2 diabetes mellitus with other diabetic kidney complication (principal); E03.9 Hypothyroidism, unspecified; I10 Essential (primary) hypertension; R80.9 Proteinuria, unspecified
CPT/HCPCS: 36415; 82043; 82565; 82570; 83036; 84443; 84520